=== PATIENT | female | born 2000 | race Two or more races ===

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

== ENCOUNTER 2018-02-09 20:22 | Emergency (ER) | payer MEDICAID, OTHER ==
[~2018-02-09] VITALS: Ht 175.3 cm; Wt 65.8 kg
[~2018-02-09 20:22] MED LIST: FLUCONAZOLE100 MG ORAL; KEFLEX500 MG ORAL
[2018-02-09] MEDS ORDERED: AMOXICILLIN500 MG ORAL (20:59)
[2018-02-09] MEDS ORDERED: IBUPROFEN600 MG ORAL (20:59)
[2018-02-09 21:00] VITALS: BP 118/74
[2018-02-09] MEDS ORDERED: Lidocaine 2% Visc 15ml soln ORAL ONE (21:00)
[2018-02-09] MEDS ORDERED: Acetaminophen 500mg (ES) tab ORAL ONE (21:00)
[2018-02-09 21:05] VITALS: BP 118/74
--- NOTE | 2018-02-09 22:06 | Emergency Room Report ---
History of Present Illness General Chief Complaint: Sore Throat Source: Patient Present Illness HPI Patient is a 17-year-old female presented after increased sore throat. The patient reports having increased discomfort associated with some changes in her voice. She denies any cough. She denies any nasal congestion. The patient was having prior episodes of tonsillitis. She reports subjective fever. Allergies: Coded Allergies: No Known Allergies (Unverified , 07/26/16) Patient History Past Medical History: none Last Menstrual Period: 7 weeks ago Now: No Reviewed Nursing Documentation: PMH: Agreed; PSxH: Agreed Nursing Documentation-PMH Past Medical History: No Stated History Review of Systems All Other Systems: negative except mentioned in HPI Physical Exam Vital Signs Date Time Temp Pulse Resp B/P (MAP) Pulse Ox O2 Delivery O2 Flow Rate FiO2 02/09/18 20:25 99.0 91 18 108/74 98 Room Air 99.0 General Appearance: well appearing, no apparent distress, alert, GCS 15 Head: normocephalic, atraumatic ENT: hearing grossly normal, normal voice, tonsillar swelling, tonsillar exudate Neck: full range of motion, supple Respiratory: no respiratory distress, speaking full sentences Musculoskeletal: no calf tenderness Neurologic: normal gait Psychiatric: mood/affect normal Skin: no rash Medical Decision Making Diagnostic Impression: Primary Impression: Tonsillitis ER Course Patient presented for sore throat. Differential diagnosis included but was not limited to meningitis, exudative tonsillitis, retropharyngeal abscess, epiglottitis, strep pharyngitis. The patient presented for tonsillitis which is bacterial. Patient be given prescription for amoxicillin. She is advised follow-up with her primary care physician for recheck in one to 2 days. She is given prescription for referral for pain. Urine test was negative. Labs Test 02/09/18 20:50 Urine HCG, Qualitative Negative (NEGATIVE) Last Vital Signs Date Time Temp Pulse Resp B/P (MAP) Pulse Ox O2 Delivery O2 Flow Rate FiO2 02/09/18 21:05 99.0 18 118/74 98 Room Air 210.2 02/09/18 21:00 78 Status: improved Disposition: HOME, SELF-CARE Condition: Stable Scripts Ibuprofen* (MOTRIN*) 600 Mg Tablet 600 MG ORAL Q8H PRN for For Pain, #30 TAB 0 Refills Prov: Tutu Bustillos MD 02/09/18 Amoxicillin* (AMOXIL*) 500 Mg Capsule 500 MG ORAL THREE TIMES A DAY, #21 CAP Prov: Tutu Bustillos MD 02/09/18 Referrals: NON PHYSICIAN (PCP) Patient Instructions: Tonsillitis Tutu Bustillos MD Feb 09, 2018 22:06
== END 2018-02-09 21:05 | disposition home or self-care (01) ==
LOC: EMR 20:58
DX: J03.90 Acute tonsillitis, unspecified (principal)
CPT/HCPCS: 81025; 99283

== ENCOUNTER 2018-04-22 20:13 | Emergency (ER) | payer MEDICAID ==
[~2018-04-22] VITALS: Ht 175.3 cm; Wt 65.8 kg
[~2018-04-22 20:13] MED LIST changes: +AMOXICILLIN500 MG ORAL; +IBUPROFEN600 MG ORAL
[2018-04-22 20:19] VITALS: BP 109/71
[2018-04-22] MEDS ORDERED: IBUPROFEN600 MG ORAL (21:15)
[2018-04-22 21:27] VITALS: BP 109/71
--- NOTE | 2018-04-23 00:01 | Emergency Room Report ---
History of Present Illness General Chief Complaint: Sore Throat Source: Patient Present Illness HPI 18-year-old female presents ED complaining of sore throat. Started 3 days ago. Notes cough. Denies fevers or chills. States pain is dull, 6 out of 10, nonradiating. Denies sick contacts or recent travel. States she has had previous history of tonsillitis. No other aggravating relieving factors. Denies any other associated symptoms Allergies: Coded Allergies: No Known Allergies (Unverified , 07/26/16) Patient History Social History: Denies: smoking, alcohol use, drug use Last Menstrual Period: 03/2018 Now: No : 0 Para: 0 Immunizations: UTD Reviewed Nursing Documentation: PMH: Agreed; PSxH: Agreed Nursing Documentation-PMH Past Medical History: No Stated History Review of Systems All Other Systems: negative except mentioned in HPI Physical Exam Vital Signs Date Time Temp Pulse Resp B/P (MAP) Pulse Ox O2 Delivery O2 Flow Rate FiO2 04/22/18 20:18 98.2 84 15 109/71 97 Room Air 98.2 Sp02 EP Interpretation: reviewed, normal General Appearance: no apparent distress, alert, GCS 15, non-toxic Head: normocephalic, atraumatic Eyes: bilateral eye normal inspection, bilateral eye PERRL ENT: hearing grossly normal, normal pharynx, no angioedema, normal voice, TMs + canals normal Neck: full range of motion, supple, no meningismus, supple/symm/no masses Respiratory: chest non-tender, lungs clear, normal breath sounds, speaking full sentences Cardiovascular #1: normal inspection Cardiovascular #2: 2+ carotid (R), 2+ carotid (L), 2+ radial (R), 2+ radial (L) , 2+ dorsalis pedis (R), 2+ dorsalis pedis (L) Gastrointestinal: normal inspection Rectal: deferred Genitourinary: normal inspection Musculoskeletal: normal inspection Neurologic: alert, oriented x3, responsive, motor strength/tone normal, sensory intact, speech normal Psychiatric: judgement/insight normal, memory normal, mood/affect normal, no suicidal/homicidal ideation Reflexes: 3+ bicep (R), 3+ bicep (L), 3+ tricep (R), 3+ tricep (L), 3+ knee (R) , 3+ knee (L) Skin: normal color, no rash, warm/dry, well hydrated Lymphatic: no adenopathy Medical Decision Making Diagnostic Impression: Primary Impression: Pharyngitis Qualified Codes: J02.9 - Acute pharyngitis, unspecified ER Course Hospital Course 18-year-old female presents to ED complaining of sore throat Differential diagnoses include: URI, pharyngitis, otitis media Clinical course Patient placed on stretcher. After initial history, physical exam reveals a young female in no acute distress. Bilateral TM unremarkable. There is no pharyngeal erythema. no exudates. No lymphadenopathy. Discussed findings with patient. There is no exudate. No lymphadenopathy. No fever. Mild cough. per [facility] criteria, unlikely strep pharyngitis Likely viral. We will treat symptomatically. Close follow-up with PMD Diagnosis - pharyngitis Stable and discharged home with prescriptions for Motrin. Instructed to followup with PMD. return to ED if symptoms recur or worsen Last Vital Signs Date Time Temp Pulse Resp B/P (MAP) Pulse Ox O2 Delivery O2 Flow Rate FiO2 04/22/18 21:27 98.2 84 15 109/71 97 Room Air 98.2 Status: improved Disposition: HOME, SELF-CARE Condition: Stable Scripts Ibuprofen* (MOTRIN*) 600 Mg Tablet 600 MG ORAL Q8H PRN for For Pain, #30 TAB 0 Refills Prov: Ward Velez MD 04/22/18 Patient Instructions: Pharyngitis, [id number] Ward Velez MD Apr 23, 2018 00:01
== END 2018-04-22 21:28 | disposition home or self-care (01) ==
LOC: EMR 21:10
DX: J02.9 Acute pharyngitis, unspecified (principal)
CPT/HCPCS: 99282

== ENCOUNTER 2018-05-22 22:32 | Emergency (ER) | payer MEDICAID ==
[~2018-05-22] VITALS: Ht 175.3 cm; Wt 66.7 kg
[2018-05-22 22:40] VITALS: BP 112/75
[2018-05-22] MEDS ORDERED: METROGEL-VAGINA70 G1 VAGIN (23:06)
--- NOTE | 2018-05-22 23:09 | Emergency Room Report ---
History of Present Illness General Chief Complaint: Female Urogenital Problems Source: Patient Present Illness HPI Patient present with complaints of vaginal discharge Patient reports that ongoing for the past 2 weeks foul smelling Denies any pelvic pain denies any abdominal pain denies any fevers or chills Patient reports that she essentially active with one partner uses condoms patient reports that she recently about 2-3 months ago had a full examination gynecological with full testing Denies any rash Denies any dysuria frequency And reports that she is not Denies any tampon use Allergies: Coded Allergies: No Known Allergies (Unverified , 07/26/16) Patient History Past Medical History: see triage record Pertinent Family History: none Last Menstrual Period: unk Reviewed Nursing Documentation: PMH: Agreed; PSxH: Agreed Nursing Documentation-PMH Past Medical History: No Stated History Review of Systems All Other Systems: negative except mentioned in HPI Physical Exam Vital Signs Date Time Temp Pulse Resp B/P (MAP) Pulse Ox O2 Delivery O2 Flow Rate FiO2 05/22/18 22:37 98.1 72 18 112/75 98 Room Air Sp02 EP Interpretation: reviewed, normal General Appearance: well appearing, no apparent distress Head: normocephalic, atraumatic Eyes: bilateral eye PERRL, bilateral eye EOMI ENT: hearing grossly normal, normal pharynx, TMs + canals normal, uvula midline Neck: full range of motion, supple, no meningismus, no bony tend Respiratory: lungs clear, normal breath sounds, no rhonchi, no respiratory distress, no retraction, no accessory muscle use Cardiovascular #1: normal peripheral pulses, regular rate, rhythm, no edema, no gallop, no JVD, no murmur Gastrointestinal: normal bowel sounds, non tender, soft, no mass, no organomegaly, non-distended, no guarding, no hernia, no pulsatile mass, no rebound Genitourinary: no CVA tenderness, other - Pelvic exam deferred Musculoskeletal: normal inspection Neurologic: oriented x3, responsive, lead android developer III-XII nml as tested, motor strength/ tone normal, sensory intact Psychiatric: mood/affect normal Skin: normal color, no rash, warm/dry, palpation normal Lymphatic: normal inspection, no adenopathy Medical Decision Making Diagnostic Impression: Primary Impression: vaginosis ER Course Given the clinical history and exam Patient appears to have findings consistent with bacterial vaginosis patient has had a recent full gynecological exam And will set up for further outpatient reevaluation Last Vital Signs Date Time Temp Pulse Resp B/P (MAP) Pulse Ox O2 Delivery O2 Flow Rate FiO2 05/22/18 22:40 98.1 78 18 112/75 98 Room Air Status: unchanged Disposition: HOME, SELF-CARE Condition: Stable Scripts Metronidazole* (METROGEL-VAGINAL*) 70 Gm Gel.w.appl 1 APPL VAGIN EVERY 12 HOURS for 7 Days, #70 GM Prov: Ayush Miller DO 05/22/18 Patient Instructions: Vaginitis Additional Instructions: Patient is provided with the discharge instructions notified to follow up with primary doctor in the next 2-3 days otherwise return to the er with any worsening symptoms. Please note that this report is being documented using [employer] technology. This can lead to erroneous entry secondary to incorrect interpretation by the dictating instrument. Ayush Miller DO May 22, 2018 23:09
[2018-05-22 23:16] VITALS: BP 112/75
== END 2018-05-22 23:16 | disposition home or self-care (01) ==
LOC: EMR 22:47
DX: N76.0 Acute vaginitis (principal)
CPT/HCPCS: 99283

== ENCOUNTER 2018-09-02 12:05 | Emergency (ER) | payer MEDICAID ==
[~2018-09-02] VITALS: Ht 172.7 cm; Wt 68.0 kg
[~2018-09-02 12:05] MED LIST changes: +METROGEL-VAGINA70 G1 VAGIN
[2018-09-02 12:20] VITALS: BP 125/85
[2018-09-02] MEDS ORDERED: Bacitracin Oint UD TOPIC ONE (12:45)
[2018-09-02] MEDS ORDERED: HYDROCORTISONE28 G2 TP (12:48)
[2018-09-02] MEDS ORDERED: BACITRACIN-P28.35 GM TP (12:48)
--- NOTE | 2018-09-02 12:49 | Emergency Room Report ---
History of Present Illness General Chief Complaint: Skin Rash/Abscess Source: Patient Present Illness HPI 18-year-old female patient presents the ER complaining of 4 separate individual lesions on her face, upper thigh and buttock times 1 day. States that she noticed them in the mirror earlier while she was changing. States that they are not painful or burning. Reports concern for possible herpes. Reports recent sexual activity, states does not know if she used protection. Denies pelvic or vaginal rash or lesions. Denies blisters. Denies drainage. Denies fever, chest pain, shortness of breath. Denies dysuria. Denies hematuria or vaginal discharge. States was recently tested for STI and results were negative. Denies concern for STI at this time. Allergies: Coded Allergies: No Known Allergies (Unverified , 07/26/16) Patient History Past Medical History: see triage record Last Menstrual Period: 07/02/2018 Now: No Reviewed Nursing Documentation: PMH: Agreed; PSxH: Agreed Nursing Documentation-PMH Past Medical History: No History, Except For Review of Systems All Other Systems: negative except mentioned in HPI Physical Exam Vital Signs Date Time Temp Pulse Resp B/P (MAP) Pulse Ox O2 Delivery O2 Flow Rate FiO2 09/02/18 12:14 98.4 88 20 127/80 99 Room Air Sp02 EP Interpretation: reviewed, normal General Appearance: well appearing, no apparent distress, alert, GCS 15, non- toxic Head: normocephalic, atraumatic Eyes: bilateral eye normal inspection, bilateral eye PERRL ENT: hearing grossly normal, normal pharynx, no angioedema, normal voice, uvula midline, moist mucus membranes Neck: full range of motion Respiratory: lungs clear, normal breath sounds, no rhonchi, no respiratory distress, no accessory muscle use, no wheezing, speaking full sentences Cardiovascular #1: regular rate, rhythm, no edema Genitourinary: ext genitalia/vag normal, deferred Musculoskeletal: back normal, digits/nails normal, gait/station normal, normal range of motion, non-tender Neurologic: alert, oriented x3, responsive, motor strength/tone normal, sensory intact Psychiatric: mood/affect normal Skin: other - Chin, proximal thigh and buttock: 4 less than 1 cm circular macules with mild erythema, scabbed, no surrounding erythema or edema, no drainage, no blisters or vesicles, no red streaking, no chancre Medical Decision Making PA Attestation Dr. Bustillos is my supervising Physician whom patient management has been discussed with. Diagnostic Impression: Primary Impression: Rash and other nonspecific skin eruption ER Course Pt. presents to the ED c/o skin lesions x 1day. Ddx considered but are not limited to atopic dermatitis, scabies, shingles, impetigo, herpes, syphilis. Vital signs: are WNL, pt. is afebrile Ordered medication. ER COURSE Physical exam not consistent with herpes or syphilis, no blisters or vesicles, no chancre, does not require treatment at this time. Advised to follow-up with STI clinic for further treatment and evaluation. Provided patient with bacitracin. Keep clean and dry. ER precautions given. Wear condoms during sex. Followup with dermatology. DISCHARGE: -Rx given for bacitracin At this time pt. is stable for d/c to home. Patient resting comfortably, in no acute distress, nontoxic appearinge. Will provide printed patient care instructions, and any necessary prescriptions. Care plan and follow up instructions have been discussed with the patient prior to discharge. Patient provided with list of healthcare clinics to establish primary care physician. Patient instructed to follow-up with primary care provider in 3 - 5 days. Patient questions asked and answered. ER precautions given. Patient instructed to return to ER immediately for any new or worsening of symptoms including but not limited to increasing SOB, persistent fever. - Please note that this Emergency Department Report was dictated using [employer] maintenance mechanic technology software, occasionally this can lead to erroneous entry secondary to interpretation by the dictation equipment. Last Vital Signs Date Time Temp Pulse Resp B/P (MAP) Pulse Ox O2 Delivery O2 Flow Rate FiO2 09/02/18 12:20 98.4 77 22 125/85 99 Room Air Disposition: HOME, SELF-CARE Condition: Stable Scripts Hydrocortisone Acetate 1% Onit (HYDROCORTISONE 1% OINT) Y Oint 28 GM TP BID, #28 GM Prov: Sterling Winslow 09/02/18 Bacitracin/Polymyxin B Sulfate (BACITRACIN-POLYMYXIN OINTMENT) 28.35 Gm Oint...g. 1 APPLIC TP BID, #28 GM Prov: Sterling Winslow 09/02/18 Patient Instructions: Insect Bite, [id number], Rash Additional Instructions: Followup with primary care provider in 3 -5 days. Request referral to dermatology as needed. Do not scratch or itch. Apply cool compresses to affected area. Wash all clothes and bedding. Wear protection when having sex. Followup with STI clinic for repeat testing. Take medications as directed. Do not apply topical steroid medication to face or skin creases. Patient questions asked and answered. ER precautions given, patient instructed to return to ER immediately for any new or worsening of symptoms. [facility] [place] [facility] Sterling Winslow Sep 02, 2018 12:49
[2018-09-02 12:56] VITALS: BP 120/85
== END 2018-09-02 12:56 | disposition home or self-care (01) ==
LOC: EMR 12:25
DX: R21 Rash and other nonspecific skin eruption (principal)
CPT/HCPCS: 99282